=== PATIENT | female | born 1945 | race Caucasian/White ===

== ENCOUNTER 2020-07-06 22:13 | Emergency (ER) | payer BC ==
[~2020-07-06] VITALS: Ht 152.4 cm; Wt 68.5 kg
[~2020-07-06 22:13] MED LIST: Z.0.CRESTOR20 MG MT; Z.1.ZEGERID 40 MG1 E MT
[2020-07-06] MEDS ORDERED: ACETAMINOPHEN 325 MG TAB PO ONE (22:30)
[2020-07-06] MEDS ORDERED: FUROSEMIDE INJ 10 MG/ML 4 ML VIAL IV ONE (22:30)
[2020-07-06] MEDS ORDERED: ASPIRIN 81 MG CHEW TAB PO ONE (22:30)
[2020-07-06] MEDS ORDERED: FAMOTIDINE 20 MG/2 ML VIAL IV ONE ×2 (22:30→23:01)
[2020-07-06] MEDS ORDERED: NITROGLYCERIN 2% OINT 1 GM PKT TOP ONE (22:30)
[2020-07-06] MEDS ORDERED: ASPIRIN 325 MG TAB ONE (23:00)
[2020-07-06] MEDS ORDERED: FUROSEMIDE INJ 10 MG/ML 4 ML VIAL ONE (23:00)
[2020-07-06] MEDS ORDERED: NITROGLYCERIN 2% OINT 1 GM PKT ONE (23:01)
[2020-07-06] MEDS ORDERED: ACETAMINOPHEN 325 MG TAB ONE (23:01)
[2020-07-06] MEDS ORDERED: HYDROCODONE/APAP 5MG-325MG TAB ONE (23:13)
[2020-07-06] MEDS ORDERED: HYDROCODONE/APAP 5MG-325MG TAB PO ONE (23:15)
== END 2020-07-06 23:45 | disposition home or self-care (01) ==
LOC: FSED 22:40
DX: I24.9 Acute ischemic heart disease, unspecified (principal); I16.0 Hypertensive urgency; I10 Essential (primary) hypertension
CPT/HCPCS: 71046; 80053; 82553; 83880; 84484; 85025; 85379; 93005; 99284; J1940